=== PATIENT | female | born 1960 | race Caucasian/White ===

== ENCOUNTER 2020-07-31 08:43 | Inpatient (IN) | payer MEDICAID, SELFPAY ==
[2020-07-31 08:44] VITALS: BP 147/76; PULSE 93; RESP 16; TEMP 36.7; O2SAT 98; BMI 14.6
--- NOTE | 2020-07-31 08:59 | EKG12_ITS ---
Test Reason : DETOX Blood Pressure : / mmHG Vent. Rate : 076 BPM Atrial Rate : 076 BPM P-R Int : 160 ms QRS Dur : 074 ms QT Int : 382 ms P-R-T Axes : 084 061 075 degrees QTc Int : 429 ms Normal sinus rhythm Possible Left atrial enlargement Septal infarct , age undetermined Abnormal ECG Confirmed by INDRA ATKINS, JEFFERSON ([id number]), non linear editor VICKY LINTON ([id number]) on 08/06/2020 12:44:39 PM Referred By: KANWAL Confirmed By:JEFFERSON BURRELL MD
--- NOTE | 2020-07-31 09:02 | ED.DCSUM_ITS ---
History of Present Illness Chief Complaint: Substance Abuse Informant: Patient Onset: Month(s) Current Severity: Moderate Maximum Severity: Moderate Narrative: Patient is a 59-year-old female who presents to the emergency department requesting detox. Patient has a long history of alcohol abuse. She states that for years, she will just drink beer. However over the past 2 years, she started to drink vodka with it. She states she goes through about 1/5 of vodka every 2 days. She states that she has begun to have financial and social issues because of her drinking and feels like it is time for her to get clean. She has done outpatient therapy before and has stayed sober for 2 months. She states that she has been shaky and nauseated. She states that her last drink was about 48 hours ago. Patient does have history of spinal stenosis, hypertension, and smoking. Prior similar symptoms: No Recent Illness/Hospitalization: No Past Medical History - Allergies and Home Meds Allergies/Adverse Reactions: Allergies codeine Adverse Reaction (Verified 07/31/20 08:47) Nausea PLASTIC TAPE Allergy (Uncoded 07/31/20 08:47) Rash Primary Care Physician: Montana Norwood MD [NON-STAFF] - Prior records reviewed: Yes Past Medical History: - - Alcohol abuse, hypertension, spinal stenosis Surgical History: noncontributory Lives: With Family Smoking Status: Current every day smoker Alcohol: Heavy Review of Systems General: Denies: Chills, Fever, Sweats Eyes: Denies: Visual changes - bilaterally, Diplopia ENT: Denies: Rhinorrhea, Sore throat Cardiovascular: Denies: Chest pain, Palpitations Respiratory: Denies: Dyspnea, Cough, Dyspnea on exertion Gastrointestinal: Reports: Nausea. Denies: Abdominal pain, Vomiting, Diarrhea, Melena, Hematochezia Genitourinary: Denies: Dysuria, Hematuria, Frequency Musculoskeletal: Denies: Back pain, Extremity Pain Skin: Denies: Rash, Wounds Neurological: Denies: Headache, Weakness, Numbness Psych: Reports: Anxiety Physical Exam Vital Signs/Narrative: Vital Signs Temp Pulse Resp BP Pulse Ox 07/31/20 08:44 98.1 F 93 16 147/76 H 98 Inital Vital Signs reviewed: Yes General: Well nourished, Well developed, No Acute Distress Head: Normocephalic, Atraumatic Eyes: Perrl, EOMI ENT: Moist mucous membranes, No rhinorrhea Neck: Supple, Nontender Cardiovascular: Regular rate, Regular rhythm, No murmurs Respiratory: No distress, CTA bilaterally, Chest nontender Abdomen: Soft, Nontender, Nondistended, Normal bowel sounds Back: Nontender, Normal Inspection Extremities: Nontender, No edema Skin: Normal color, No rash Neurological: Alert, Oriented x3, Cranial nerves II-XII grossly intact, Normal Strength, Normal Sensation Psychological: Normal affect, Normal Mood Diagnostic/Tx/Re-eval Abnormal Lab Results 07/31/20 07/31/20 09:13 09:13 WBC 8.1 RBC 3.43 L Hgb 11.0 L Hct 33.2 L MCV 96.8 MCH 32.1 H MCHC 33.1 RDW Std Deviation 47.1 H RDW Coeff of Marcia 13.2 Plt Count 194 MPV 9.0 Immature Gran % (Auto) 0.200 Neut % (Auto) 72.5 H Lymph % (Auto) 16.6 L [place] % (Auto) 8.2 Eos % (Auto) 1.9 Baso % (Auto) 0.6 Absolute Neuts (auto) 5.8 Absolute Lymphs (auto) 1.34 Nucleated RBC % 0 Sodium 127 L Potassium 3.3 L Chloride 90 L Carbon Dioxide 29.0 Anion Gap 8 BUN 4 L Creatinine 0.83 Estim Creat Clear Calc 48.41 Est GFR (MDRD) Af Amer 91 Est GFR (MDRD) Non-Af 76 BUN/Creatinine Ratio 4.8 L Glucose 98 Calcium 8.9 Total Bilirubin 0.50 AST 31 ALT 14 Alkaline Phosphatase 64 Total Protein 7.1 Albumin 3.9 Globulin 3.2 Albumin/Globulin Ratio 1.2 - Rhythm Strip Rhythm Strip: Sinus Rhythm Rate: 80 Ectopy: None - EKG Initial EKG Interpretation: Sinus Rhythm, No Acute Injury Pattern Prior: Unchanged - Medical Decision Making Patient presents requesting detox from alcohol. Her last drink was 48 hours ago. She is tremulous but not tachycardic. Metabolic work-up was pursued. EKG was sinus rhythm without ischemia. She is found to be mildly hypokalemic and hyponatremic. Her potassium was replaced. Patient was discussed with the hospitalist and will be admitted for her alcohol dependence. Impression 1. Alcohol dependence ED Disposition - Plan for ED Patient: Referrals: Montana Norwood MD [NON-STAFF] -
[2020-07-31] MEDS: LORazepam 2 MG/ML Syringe 1 MG IV (09:23)
[2020-07-31 09:24] LABS: Absolute Lymphocyte Count 1.34 X10^3/uL (0.83-4.51); Absolute Neutrophil Count 5.8 X10^3/uL (2.0-7.7); Basophil# 0.05 X10^3/uL; Basophil% 0.6 % (0-1); Eosinophil# 0.15 X10^3/uL; Eosinophils% 1.9 % (0-5); Hematocrit 33.2 % (37-47); Lymphocyte # 1.34 X10^3/ul (4.0); Lymphocyte % 16.6 % (19-41); Mean Corp Hgb Conc 33.1 g/dL (32-36); Mean Corpuscular Hgb 32.1 pg (27.0-32.0); Mean Corpuscular Volume 96.8 fL (81-99); Monocyte# 0.66 X10^3/uL; Monocyte% 8.2 % (0-10); NRBC Flagged by Analyzer 0 % (0-5); Neutrophil # 5.83 X10^3/uL (2.7-7.7); Neutrophil % 72.5 % (47-70); Platelet Count 194 K/mm3 (150-450); RBC Distribution Width CV 13.2 % (11.6-14.6); RBC Distribution Width SD 47.1 fl (35.1-43.9); Red Blood Count 3.43 M/mm3 (4.2-5.4); White Blood Count 8.1 K/mm3 (4.4-11.0)
[2020-07-31 09:42] LABS: ALB/GLOB Ratio 1.2 RATIO (0.9-2.4); AST(SGOT) 31 U/L (15-37); Alanine Aminotransfer ALT/SGPT 14 U/L (13-56); Albumin, Serum 3.9 g/dL (3.2-5.0); Alkaline Phosphatase 64 U/L (45-117); Anion Gap 8 (5-15); BUN 4 mg/dL (7-18); BUN/Creat Ratio 4.8 RATIO (10-20); Calcium,Total 8.9 mg/dL (8.5-10.1); Chloride 90 mmol/L (98-107); Creatinine, Serum 0.83 mg/dL (0.55-1.02); EST Glomerular Filtration Rate 76 mL/min (>60); Est Glom Filt Rate - Afr Amer 91 mL/min (>60); Estimated Creatinine Clearance 48.41 ml/min; Globulin 3.2 g/dL (2.2-4.2); Glucose 98 mg/dL (74-106); Potassium 3.3 mmol/L (3.5-5.1); Protein, Total 7.1 g/dL (6.4-8.2); Sodium Level 127 mmol/L (136-145)
[2020-07-31 10:03] LABS: Alcohol, Blood (Medical)-Serum < 3.0 mg/dL
[2020-07-31 10:06] VITALS: BP 140/82; BP 148/68; BP 148/72; PULSE 90; RESP 16; TEMP 36.6; O2SAT 98
--- NOTE | 2020-07-31 10:10 | CM.ED ---
SOCIAL WORK Reason for Consult: Substance Abuse- patient requesting detox from ETOH Met with patient in room. Introduced role and reason for referral. Patient states has been battling alcohol addiction for many years. Patient states, I need to stop. Patient reports good support from boyfriend and son. Patient states has already been in contact with [facility]. Patient states last drink was Thursday. Patient reports drinks a 5th of vodka in 3 days. Patient states believes would benefit from inpatient/residential treatment at discharge as outpatient has not worked in the past. Much emotional support and encouragement provided. Call to [facility] Treatment NavigatorAmira- updated on patient's admission to [facility]. Plan: Admit to [facility] Devon Melendez, IT SENIOR SOFTWARE ENGINEER JAVA, ESE TEACHER
[2020-07-31 10:12] LABS: Mucous, Urine 0 SEEN /hpf (<or=2+); Red Blood Cells-Urine 0 SEEN /hpf (0-5)
[2020-07-31 10:14] LABS: Color, Urine Yellow (Yellow); Glucose, Dipstick Normal (Normal); Ketone-Dipstick Negative (Negative); Leukocyte Esterase-Dipstick 500 /ul (Negative); Nitrite-Dipstick Negative (Negative); Occult Blood-Urine Negative /ul (Negative); Protein-Dipstick Negative (Negative); Urine Bilirubin Dipstick Negative (Negative); Urine Clarity Clear (Clear); Urine Urobilinogen Normal (Normal)
[2020-07-31 10:22] LABS: Amphetamine Urine VISTA NEGATIVE (<1000 ng/mL); Barbiturate Urine VISTA NEGATIVE (< 200 ng/mL); Benzodiazepine Urine VISTA NEGATIVE (< 200 ng/mL); Cocaine Urine VISTA NEGATIVE (< 300 ng/mL); Ecstacy Urine VISTA NEGATIVE (< 500 ng/mL); Methadone Urine VISTA NEGATIVE (< 300 ng/mL); PCP Urine VISTA NEGATIVE (< 25 ng/mL); THC Urine VISTA NEGATIVE (< 50 ng/mL); Vista UDS pH Range 7
[2020-07-31 10:26] LABS: Squamous Epithelial Cells - UA 0-5 SEEN /hpf (5-10); White Blood Cells 5-10 SEEN /hpf (0-5)
[2020-07-31 10:27] LABS: Bacteria RARE /hpf (None Seen)
[2020-07-31 12:52] VITALS: BMI 14.7
[2020-07-31 13:01] VITALS: BMI 14.7
[2020-07-31 13:11] VITALS: BP 143/74; PULSE 77; RESP 16; TEMP 36.7; O2SAT 97
[2020-07-31 13:21] LABS: Magnesium 1.2 mg/dL (1.6-2.6)
[2020-07-31] MEDS: Phenobarbital 32.4 MG Tablet 64.8 MG PO ×3 (14:26→20:05)
[2020-07-31] MEDS: 0.9% Saline Lock 10 ML Syringe IV (15:13)
[2020-07-31] MEDS: Potassium Chloride 40 MEQ in 0.9% Normal Saline 1,000 ML 150 MEQ IV (15:13)
--- NOTE | 2020-07-31 15:36 | NT.THERAPY_ITS ---
Nutrition Therapy Report - History Nutrition Services has been consulted to:: Manage nutrient details of diet order Current diet / nutrition support order:: regular - Anthropometric Measurements Height:: 5 ft 6 in Weight:: 41.4 kg Body Mass Index (BMI):: 14.7 - Relevant Labs Relevant Labs:: RBC 3.43 M/mm3 (4.2-5.4) L 07/31/20 09:13 Hgb 11.0 g/dL (12.0-15.0) L 07/31/20 09:13 Hct 33.2 % (37-47) L 07/31/20 09:13 MCH 32.1 pg (27.0-32.0) H 07/31/20 09:13 RDW Std Deviation 47.1 fl (35.1-43.9) H 07/31/20 09:13 Neut % (Auto) 72.5 % (47-70) H 07/31/20 09:13 Lymph % (Auto) 16.6 % (19-41) L 07/31/20 09:13 Sodium 127 mmol/L (136-145) L 07/31/20 09:13 Potassium 3.3 mmol/L (3.5-5.1) L 07/31/20 09:13 Chloride 90 mmol/L (98-107) L 07/31/20 09:13 BUN 4 mg/dL (7-18) L 07/31/20 09:13 BUN/Creatinine Ratio 4.8 RATIO (10-20) L 07/31/20 09:13 Magnesium 1.2 mg/dL (1.6-2.6) L 07/31/20 09:13 - Assessment Food / Nutrition-Related History:: Pt describes PO intake CUSTOMER ENGAGEMENT SPECIALIST as poor- not usually a breakfast eater, would have a small snack in afternoon and not eat much at dinner time. States wt 1 year ago was 110# and has been as low as 88# recently (22#/20% wt loss x 1 year, significant for malnutrition). Denies issues chewing/swallowing. Reports interest in gaining wt. - Nutrition Diagnosis Problem / Etiology / Signs & Symptoms (PES):: Pt w/ moderate malnutrition in context of social/behavioral circumstances r/t alcohol abuse as evidenced by reported wt loss of 20% x 1 year, estimated PO intake meeting less than 75% of estimated nutritional needs >3 months. Evidence of Malnutrition Exists:: Yes Moderate PCM:: Social & Environmental circumstances - Nutrition Intervention Nutrition Prescription:: For wt gain: [id number] calories, 50-60 g protein/day - Food / Nutrient Delivery Interventions Summary of nutrition intervention:: Discussed regular diet order. Pt agreeable to trying ensure enlive w/ medpass. No questions for RDN at this time. Nutrition support ordered as / adjusted to:: regular diet; 120mL ensure enlive 4x/day Nutrition education provided?: Yes - MNT Monitoring Further MNT monitoring and evaluation required?: Yes MNT Follow-up in:: 3-5 days
[2020-07-31 15:38] VITALS: BMI 14.7
--- NOTE | 2020-07-31 16:33 | HP.PCM_ITS ---
Problem List (1) Alcohol withdrawal Status: Acute Qualifiers: Complication of substance-induced condition: uncomplicated Qualified Code(s): F10.230 - Alcohol dependence with withdrawal, uncomplicated History of Present Illness Date of Admission: 07/31/20 Chief Complaint: seeking treatment for alcohol withdrawal. The patient is a 59 year old F presents to [facility] seeking treatment for alcohol. Patient drinks 1/5 of vodka per day. Patient's last drink was 3 days ago and since then has been experiencing some minor tremors, headache and nausea. Patient was brought in at the insistence of her family the patient does want to quit alcohol. Patient said that she had quit back in May on her own and was sober for period of time but resumed drinking again. Patient has not followed up with in the formal program previously though has had a [facility], where she was mandated to seek treatment but stopped doing so once that mandate had lapsed. [] Past Medical History Medical History: Medical History (Last Updated 07/31/20 @ 16:[address] Robinson Blank, DO) COPD (chronic obstructive pulmonary disease) J44.9 HTN (hypertension) I10 Allergies codeine Adverse Reaction (Verified 07/31/20 08:47) Nausea PLASTIC TAPE Allergy (Uncoded 07/31/20 08:47) Rash Home Medications: Ambulatory Orders Medication Instructions Recorded Amlodipine [Norvasc] 5 mg PO DAILY 07/31/20 Folic Acid 1 mg PO DAILY 07/31/20 Gabapentin [Neurontin] 100 mg PO TID 07/31/20 Metoprolol Succinate [Toprol Xl] 50 mg PO DAILY 07/31/20 Thiamine HCl [B-1] 100 mg PO 07/31/20 Tizanidine HCl [Zanaflex] 4 mg PO PRN PRN 07/31/20 Surgical History: noncontributory Lives: With Family Smoking Status: Heavy Smoker (>10/day) Tobacco Use: Cigarettes Alcohol: Heavy Drugs: None - *Family History Maternal History Items: No pertinent history Review of Systems Constitutional: Denies: Anorexia, Night Sweats Eyes: Denies: Blurred vision, Double vision HEENT: Denies: Head Aches, Sinus Congestion, Sinus Drainage Cardiovascular: Denies: Chest Pain, Palpitations Respiratory: Denies: Cough, Shortness of breath at rest, Sputum production Gastrointestinal: Denies: Abdominal Pain, Nausea, Vomiting Genitourinary: Denies: Dysuria Musculoskeletal: Denies: Joint Pain, Joint Tenderness Skin: Denies: Rash, Wounds Neurological: Denies: Numbness, Tingling, Focal weakness Psychiatric: Denies: Anxiety, Depression Hematologic/ Lymphatic: Denies: Easy Bruising, Easy Bleeding, Hx of blood clot Comment: All review of systems were negative except as mentioned above in the history of present illness and the other review of systems. VTE Information - Inpt Only VTE Present on Admission: No VTE Mechan Device Prophylaxis: None VTE Pharm Prophylaxis ordered?: No Reason prophylaxis not ordered:: Treatment Not Indicated - Physical Exam Vitals/I&O's: Vital Signs Temp Pulse Resp BP Pulse Ox 36.7 C 77 16 143/74 H 97 07/31/20 13:11 07/31/20 13:11 07/31/20 13:11 07/31/20 13:11 07/31/20 13:11 Oxygen Delivery Method Room Air Weight: 41.4 kg Body Mass Index (BMI) 14.7 General: Alert, Cooperative, No apparent distress HEENT: Atraumatic, Normocephalic Oral: Moist Mucosa, No Gingival or Mucosal Lesions/ Ulcerations Neck: No Nodes, Thyroid Normal Size and Texture Lungs: Clear to auscultation, Normal air movement, No rhonchi, No wheeze Cardiovascular: Regular rate, Regular Rhythm, Normal S1, Normal S2, No murmurs Abdomen: Bowel Sounds Present, Soft, Non Tender, Non-Distended, No Hepato- splenomegaly Extremities: No edema, No Calf Tenderness Skin: No rashes, No breakdown Psych/Mental Status: Normal Affect, Appropriate Laboratory Results 07/31/20 09:13: WBC 8.1, RBC 3.43 L, Hgb 11.0 L, Hct 33.2 L, MCV 96.8, MCH 32.1 H, MCHC 33.1, RDW Std Deviation 47.1 H, RDW Coeff of Amrcia 13.2, Plt Count 194, MPV 9.0, Immature Gran % (Auto) 0.200, Neut % (Auto) 72.5 H, Lymph % (Auto) 16.6 L, [place] % (Auto) 8.2, Eos % (Auto) 1.9, Baso % (Auto) 0.6, Absolute Neuts (a uto) 5.8, Absolute Lymphs (auto) 1.34, Nucleated RBC % 0 07/31/20 09:13: Sodium 127 L, Potassium 3.3 L, Chloride 90 L, Carbon Dioxide 29.0, Anion Gap 8, BUN 4 L, Creatinine 0.83, Estim Creat Clear Calc 48.41, Est GFR (MDRD) Af Amer 91, Est GFR (MDRD) Non-Af 76, BUN/Creatinine Ratio 4.8 L, Glucose 98, Calcium 8.9, Total Bilirubin 0.50, AST 31, ALT 14, Alkaline Phosphatase 64, Total Protein 7.1, Albumin 3.9, Globulin 3.2, Albumin/Globulin Ratio 1.2 07/31/20 09:13: Ethyl Alcohol < 3.0 07/31/20 09:13: Magnesium 1.2 L 07/31/20 10:00: Urine Color Yellow, Urine Clarity Clear, Urine pH 8.0, Ur Specific Plain 1.010, Urine Protein Negative, Urine Glucose (UA) Normal, Urine Ketones Negative, Urine Occult Blood Negative, Urine Nitrite Negative, Urine Bilirubin Negative, Urine Urobilinogen Normal, Ur Leukocyte Esterase 500 H, Urine RBC 0 SEEN, Urine WBC 5-10 SEEN, Ur Squamous Epith Cells 0-5 SEEN, Urine Bacteria RARE, Urine Mucus 0 SEEN 07/31/20 10:00: Urine Opiates Screen NEGATIVE, Urine Methadone Screen NEGATIVE, Ur Barbiturates Screen NEGATIVE, Ur Phencyclidine Scrn NEGATIVE, Ur Amphetamines Screen NEGATIVE, U Methamphetamin-MDMA NEGATIVE, U Benzodiazepines Scrn NE GATIVE, Urine Cocaine Screen NEGATIVE, U Cannabinoids Screen NEGATIVE, Ur Drug Screen Comment Current Medications Acetaminophen (Acetaminophen 500 Mg Tablet) 500 mg PO Q4H PRN PRN PRN Reason: Temp > 100.4 F Amlodipine Besylate (Amlodipine 5 Mg Tablet) 5 mg PO DAILY [facility] Dicyclomine HCl (Dicyclomine 10 Mg Capsule) 20 mg PO Q6H PRN PRN PRN Reason: abdominal discomfort Folic Acid (Folic Acid 1 Mg Tablet) 1 mg PO DAILYCM [facility] Gabapentin (Gabapentin 100 Mg Capsule) 100 mg PO TIDCM [facility] Hydroxyzine Pamoate (Hydroxyzine Soyf 25 Mg Capsule) 50 mg PO Q4H PRN PRN PRN Reason: mild anxiety Potassium Chloride 40 meq/ (Sodium Chloride) 1,020 mls @ 150 mls/hr IV .[id number] [facility] Stop: 07/31/20 19:35 Last Admin: 07/31/20 15:13 Dose: 150 mls/hr Documented by: Ibuprofen (Ibuprofen 600 Mg Tablet) 600 mg PO Q8H PRN PRN PRN Reason: Pain Score 1-10 Loperamide HCl (Loperamide 2 Mg Capsule) 2 mg PO Q4H PRN PRN PRN Reason: LOOSE STOOLS Metoprolol Succinate (Metoprolol(Xl)Succ 50 Mg Tablet) 50 mg PO DAILY [facility] Nicotine (Nicotine 21 Mg Patch) 21 mg TD DAILY [facility] Last Admin: 07/31/20 15:13 Dose: 21 mg Documented by: Nutritional Formula (Lactose Free) (Ensure Enlive 120 Ml Liquid) 120 ml PO 4X/DAY [facility] Ondansetron HCl (Ondansetron 8 Mg Tablet) 8 mg PO Q8H PRN PRN PRN Reason: NAUSEA Phenobarbital (Phenobarbital 32.4 Mg Tablet) 97.2 mg PO Q4H [facility]; Taper Stop: 08/04/20 20:59 Last Admin: 07/31/20 14:26 Dose: 97.2 mg Documented by: Sodium Chloride (0.9% Saline Lock 10 Ml Syringe) 10 - 40 ml IV UD PRN PRN Reason: SALINE FLUSH Last Admin: 07/31/20 15:13 Dose: 10 ml Documented by: Thiamine HCl (Thiamine Hydrochloride 100 Mg Tablet) 100 mg PO DAILYCM [facility] Tizanidine HCl (Tizanidine Hcl 2 Mg Tablet) 4 mg PO Q8H PRN PRN Reason: SPASMS Trazodone HCl (Trazodone 100 Mg Tablet) 100 mg PO QHS PRN PRN Reason: INSOMNIA Assessment/Plan All Active Problems Alcohol withdrawal (Acute) 1. Acute alcohol withdrawal: Patient last drink was roughly 72 hours ago and seems to be doing okay at this time. Plan is to continue with phenobarbital taper, add thiamine and folate. Addiction medicine to assist with program upon outpatient. Patient currently expressing desire to follow-up with programs to maintain sobriety. Encouraged patient to take an active role in regards to her addiction and treatment moving forward. 2. Hypertension: Stable. Continue with amlodipine 3. VTE prophylaxis: Not indicated. Ambulation. 4. Tobacco abuse: Nicotine patch. Inpatient E&M: 64874 Init Hosp L2
[2020-07-31 17:37] VITALS: BP 135/81; PULSE 82; RESP 18; TEMP 37.2; O2SAT 97
[2020-07-31] MEDS: Gabapentin 100 MG Capsule PO (17:39)
[2020-07-31 20:20] VITALS: BP 123/73; PULSE 96; RESP 16; TEMP 37; O2SAT 96
[2020-08-01] VITALS (8 sets, daily range): BP systolic 132–147; BP diastolic 72–97; PULSE 78–109; RESP 12–18; TEMP 36.3–36.9; O2SAT 97–99
[2020-08-01] MEDS: Phenobarbital 32.4 MG Tablet 64.8 MG PO ×6 (01:03→21:39)
[2020-08-01] MEDS: amLODIPine 5 MG Tablet PO (08:05)
[2020-08-01] MEDS: Gabapentin 100 MG Capsule PO ×3 (08:05→16:31)
[2020-08-01] MEDS: Metoprolol(XL)Succ 50 MG Tablet PO (08:05)
[2020-08-01] MEDS: Folic Acid 1 MG Tablet PO (08:05)
[2020-08-01] MEDS: Thiamine Hydrochloride 100 MG Tablet PO (08:05)
[2020-08-01] MEDS: 0.9% Saline Lock 10 ML Syringe IV ×2 (08:10→21:40)
[2020-08-01] MEDS: Magnesium Sulfate 4gm/100mL 4 GM/100 ML IV.SOLN. IV (08:15)
--- NOTE | 2020-08-01 08:28 | PN_ITS ---
Patient Problems: Active and Suspected Problems (Last Updated 07/31/20 @ 16:[address] Robinson Blank, DO) Alcohol withdrawal (Acute) Reason for Visit: alcohol withdrawal Subjective: Feels better. Tolerating PO. No tremors, headaches. Vitals/I&O's: Vital Signs Temp Pulse Resp BP Pulse Ox 36.6 C 104 H 16 139/97 H 98 08/01/20 08:01 08/01/20 08:05 08/01/20 08:01 08/01/20 08:01 08/01/20 08:01 Oxygen Delivery Method Room Air Weight: 41.4 kg Body Mass Index (BMI) 14.7 Intake and Output for Last 24 Hours 07/30/20 07/31/20 08/01/20 23:59 23:59 23:59 Intake Total 1220 / 1220 Balance 1220 / 1220 General: Alert, No apparent distress HEENT: Atraumatic, Normocephalic Oral: Moist Mucosa, No Gingival or Mucosal Lesions/ Ulcerations Neck: No Nodes, Thyroid Normal Size and Texture Lungs: Clear to auscultation, Normal air movement, No rhonchi, No wheeze, No rales Cardiovascular: Regular rate, Regular Rhythm, Normal S1, Normal S2, No murmurs Abdomen: Bowel Sounds Present, Soft, Non Tender, Non-Distended, No Hepato- splenomegaly Extremities: No edema, No Calf Tenderness Psych/Mental Status: Normal Affect, Appropriate Laboratory Results 07/31/20 09:13: WBC 8.1, RBC 3.43 L, Hgb 11.0 L, Hct 33.2 L, MCV 96.8, MCH 32.1 H, MCHC 33.1, RDW Std Deviation 47.1 H, RDW Coeff of Marcia 13.2, Plt Count 194, MPV 9.0, Immature Gran % (Auto) 0.200, Neut % (Auto) 72.5 H, Lymph % (Auto) 16.6 L, [place] % (Auto) 8.2, Eos % (Auto) 1.9, Baso % (Auto) 0.6, Absolute Neuts (auto) 5.8, Absolute Lymphs (auto) 1.34, Nucleated RBC % 0 07/31/20 09:13: Sodium 127 L, Potassium 3.3 L, Chloride 90 L, Carbon Dioxide 29.0, Anion Gap 8, BUN 4 L, Creatinine 0.83, Estim Creat Clear Calc 48.41, Est GFR (MDRD) Af Amer 91, Est GFR (MDRD) Non-Af 76, BUN/Creatinine Ratio 4.8 L, Glucose 98, Calcium 8.9, Total Bilirubin 0.50, AST 31, ALT 14, Alkaline Phosphatase 64, Total Protein 7.1, Albumin 3.9, Globulin 3.2, Albumin/Globulin Ratio 1.2 07/31/20 09:13: Ethyl Alcohol < 3.0 07/31/20 09:13: Magnesium 1.2 L 07/31/20 10:00: Urine Color Yellow, Urine Clarity Clear, Urine pH 8.0, Ur Specific [place] 1.010, Urine Protein Negative, Urine Glucose (UA) Normal, Urine Ketones Negative, Urine Occult Blood Negative, Urine Nitrite Negative, Urine Bilirubin Negative, Urine Urobilinogen Normal, Ur Leukocyte Esterase 500 H, Urine RBC 0 SEEN, Urine WBC 5-10 SEEN, Ur Squamous Epith Cells 0-5 SEEN, Urine Bacteria RARE, Urine Mucus 0 SEEN 07/31/20 10:00: Urine Opiates Screen NEGATIVE, Urine Methadone Screen NEGATIVE, Ur Barbiturates Screen NEGATIVE, Ur Phencyclidine Scrn NEGATIVE, Ur Amphetamines Screen NEGATIVE, U Methamphetamin-MDMA NEGATIVE, U Benzodiazepines Scrn NEGATIVE, Urine Cocaine Screen NEGATIVE, U Cannabinoids Screen NEGATIVE, Ur Drug Screen Comment Current Medications Acetaminophen (Acetaminophen 500 Mg Tablet) 500 mg PO Q4H PRN PRN PRN Reason: Temp > 100.4 F Amlodipine Besylate (Amlodipine 5 Mg Tablet) 5 mg PO DAILY [facility] Last Admin: 08/01/20 08:05 Dose: 5 mg Documented by: Dicyclomine HCl (Dicyclomine 10 Mg Capsule) 20 mg PO Q6H PRN PRN PRN Reason: abdominal discomfort Folic Acid (Folic Acid 1 Mg Tablet) 1 mg PO DAILYCM [facility] Last Admin: 08/01/20 08:05 Dose: 1 mg Documented by: Gabapentin (Gabapentin 100 Mg Capsule) 100 mg PO TIDCM [facility] Last Admin: 08/01/20 08:05 Dose: 100 mg Documented by: Hydroxyzine Pamoate (Hydroxyzine Sofy 25 Mg Capsule) 50 mg PO Q4H PRN PRN PRN Reason: mild anxiety Magnesium Sulfate () 4 gm in 100 mls @ 25 mls/hr IV X1 ONE Stop: 08/01/20 11:44 Last Admin: 08/01/20 08:15 Dose: 25 mls/hr Documented by: Sodium Chloride () 250 mls @ 15 mls/hr IV .[id number] PRN PRN Reason: Saline Flush Ibuprofen (Ibuprofen 600 Mg Tablet) 600 mg PO Q8H PRN PRN PRN Reason: Pain Score 1-10 Loperamide HCl (Loperamide 2 Mg Capsule) 2 mg PO Q4H PRN PRN PRN Reason: LOOSE STOOLS Metoprolol Succinate (Metoprolol(Xl)Succ 50 Mg Tablet) 50 mg PO DAILY [facility] Last Admin: 08/01/20 08:05 Dose: 50 mg Documented by: Nicotine (Nicotine 21 Mg Patch) 21 mg TD DAILY [facility] Last Admin: 08/01/20 08:05 Dose: 21 mg Documented by: Nutritional Formula (Lactose Free) (Ensure Enlive 120 Ml Liquid) 120 ml PO 4X/DAY [facility] Last Admin: 07/31/20 20:05 Dose: Not Given Documented by: Ondansetron HCl (Ondansetron 8 Mg Tablet) 8 mg PO Q8H PRN PRN PRN Reason: NAUSEA Phenobarbital (Phenobarbital 32.4 Mg Tablet) 97.2 mg PO Q4H [facility]; Taper Stop: 08/04/20 20:59 Last Admin: 08/01/20 08:09 Dose: 97.2 mg Documented by: Sodium Chloride (0.9% Saline Lock 10 Ml Syringe) 10 - 40 ml IV UD PRN PRN Reason: SALINE FLUSH Last Admin: 08/01/20 08:10 Dose: 10 ml Documented by: Thiamine HCl ([facility]ide 100 Mg [facility]t) [facility] Last Admin: 08/01/20 08:05 Dose: 100 mg Documented by: Tizanidine HCl (Tizanidine Hcl 2 Mg Tablet) 4 mg PO Q8H PRN PRN Reason: SPASMS Trazodone HCl (Trazodone 100 Mg Tablet) 100 mg PO QHS PRN PRN Reason: INSOMNIA STROKE Vital Signs/Narrative: Vital Signs Temp Pulse Resp BP Pulse Ox 08/01/20 08:05 104 H 08/01/20 08:01 36.6 C 104 H 16 139/97 H 98 08/01/20 07:58 36.6 C 104 H 16 139/97 H 98 Medical Necessity - Tobacco Use Smoking Status: Heavy Smoker (>10/day) Tobacco Use: Cigarettes Assessment/Plan All Active Problems (Last Updated 07/31/20 @ 16:[address] Robinson Blank, DO) Alcohol withdrawal (Acute) 1. Acute alcohol withdrawal: Patient last drink was roughly 72 hours prior to admission and seems to be doing okay at this time. Plan is to continue with phenobarbital taper, add thiamine and folate. Addiction medicine to assist with program upon outpatient. Patient currently expressing desire to follow-up with programs to maintain sobriety. Encouraged patient to take an active role in regards to her addiction and treatment moving forward. 2. Hyponatremia: likely 2/2 alcohol consumption. Recheck labs 3. Hypokalemia: likley d/t malnutrition. recheck and replace PRN. 4. Hypomagnesemia: d/t malnutrition. replace and recheck. 5. Malnutrition: albumin normal. consult dietary on recommendations. 6. Hypertension: Stable. Continue with amlodipine 7. VTE prophylaxis: Not indicated. Ambulation. 8. Tobacco abuse: Nicotine patch. Inpatient E&M: [id number] Subs Hosp L2
[2020-08-01 09:12] LABS: Anion Gap 6 (5-15); BUN 5 mg/dL (7-18); BUN/Creat Ratio 6.6 RATIO (10-20); Calcium,Total 9.1 mg/dL (8.5-10.1); Chloride 95 mmol/L (98-107); Creatinine, Serum 0.76 mg/dL (0.55-1.02); EST Glomerular Filtration Rate 84 mL/min (>60); Est Glom Filt Rate - Afr Amer 101 mL/min (>60); Estimated Creatinine Clearance 53.38 ml/min; Glucose 107 mg/dL (74-106); Potassium 3.9 mmol/L (3.5-5.1); Sodium Level 128 mmol/L (136-145)
--- NOTE | 2020-08-01 09:53 | ADDICTION ---
This sql report writer met with PT in her room to complete ASAM, MSE, AUDIT assessments and to begin planning for discharge. PT A/Ox4 and participated appropriately. She reported no withdrawal symptoms. All documentation completed, faxed to [facility] and placed in PT chart. [facility] updated on plan. PT has appointment scheduled for [facility] on 08/08/20 for assessment and follow-up treatment. She is also interested in pursuing mental health treatment with her counselor (in [facility]), Moriah. She will d/c to home and did not request transportation assistance.
[2020-08-02] MEDS: Phenobarbital 32.4 MG Tablet 64.8 MG PO ×3 (01:45→09:11)
[2020-08-02 01:55] VITALS: BP 148/78; PULSE 77; RESP 16; TEMP 36.4; O2SAT 99
[2020-08-02 07:24] LABS: Anion Gap 5 (5-15); BUN 11 mg/dL (7-18); BUN/Creat Ratio 16.4 RATIO (10-20); Calcium,Total 8.7 mg/dL (8.5-10.1); Chloride 98 mmol/L (98-107); Creatinine, Serum 0.67 mg/dL (0.55-1.02); EST Glomerular Filtration Rate 96 mL/min (>60); Est Glom Filt Rate - Afr Amer 116 mL/min (>60); Estimated Creatinine Clearance 60.55 ml/min; Glucose 89 mg/dL (74-106); Magnesium 1.8 mg/dL (1.6-2.6); Potassium 3.9 mmol/L (3.5-5.1); Sodium Level 129 mmol/L (136-145)
[2020-08-02] MEDS: Thiamine Hydrochloride 100 MG Tablet PO (07:52)
[2020-08-02] MEDS: Gabapentin 100 MG Capsule PO (07:52)
[2020-08-02] MEDS: Folic Acid 1 MG Tablet PO (07:52)
[2020-08-02 08:00] VITALS: BP 128/90; PULSE 119; RESP 16; TEMP 37.2; O2SAT 98
[2020-08-02 09:00] VITALS: BP 128/90; PULSE 114; RESP 18; TEMP 36.7; O2SAT 97
[2020-08-02 09:14] VITALS: PULSE 119
[2020-08-02] MEDS: Metoprolol(XL)Succ 50 MG Tablet PO (09:14)
[2020-08-02] MEDS: amLODIPine 5 MG Tablet PO (09:15)
--- NOTE | 2020-08-02 09:15 | ADDICTION ---
This display card writer met with PT in her room to finalize d/c plan. PT to d/c home and plans to follow up with her counselor, Moriah, in [place], [place]. This display card writer offered appt. with [facility] again, PT declined.
--- NOTE | 2020-08-02 09:39 | PCM.DC ---
- Discharge Diagnoses Current Active Problems: Current Active and Chronic Problems (Last Updated 07/31/20 @ 16:[address] Robinson Blank DO) Alcohol withdrawal (Acute) You will use the following diet at home:: No restrictions Your food should be the consistency of: Regular Call your doctor if you observe: Fever of 101 or Higher Allergies/Adverse Reactions: Allergies codeine Adverse Reaction (Verified 07/31/20 08:47) Nausea PLASTIC TAPE Allergy (Uncoded 07/31/20 08:47) Rash Medications to take at Discharge Amlodipine [Norvasc] 5 mg PO DAILY 07/31/20 Folic Acid 1 mg PO DAILY 07/31/20 Gabapentin [Neurontin] 100 mg PO TID 07/31/20 Metoprolol Succinate [Toprol Xl] 50 mg PO DAILY 07/31/20 Thiamine HCl [Vitamin B-1] 100 mg PO 07/31/20 Tizanidine HCl [Zanaflex] 4 mg PO PRN PRN 07/31/20 Primary Care Physician: Montana Norwood MD [NON-STAFF] - Within 2 Weeks Test Results: Test results from this visit will be discussed in further detail at your follow-up appointment, if applicable. Please Follow Up With: [facility] When: 1-2 weeks. Proposed Discharge Date: 08/02/20
--- NOTE | 2020-08-02 09:40 | PCM.DC.SUM ---
Discharge Date and Diagnosis - Problem List Patient Problems: Active and Suspected Problems (Last Updated 07/31/20 @ 16:[address] Robinson Blank DO) Alcohol withdrawal (Acute) Date of Admission: 07/31/20 Date of Discharge: 08/02/20 - Primary Discharge Diagnosis Acute Problems: Active Problems (Last Updated 07/31/20 @ 16:[address] Robinson Blank DO) Alcohol withdrawal (Acute) Hyponatremia Hypokalemia Hypomagnesemia - Secondary Discharge Diagnosis Chronic Problems: moderate malnutrition Hospital Course and Treatment Operations: None Procedures: None Summary of Care Provided: The patient is a 59 year old F presents seeking treatment for alcohol withdrawal. Patient's last consumption of alcohol is a roughly 3 days prior to admission. Patient was having some mild symptoms with regards to some slight tremors. Patient was given an ultimatum by her family regards to seeking treatment. Patient had some electrolyte derangements when she arrived including a low sodium, low potassium and low magnesium. Potassium magnesium replaced and normalized. Sodium is continued to be low but has slightly gone up. This is likely related with patient's alcohol consumption. This may be further followed up as outpatient. Patient is having no symptoms are associated with her hyponatremia. Patient was seen by addiction medicine for her alcoholism. Patient was seen by 180. They did provide the patient an appointment time for the , however, the patient is going to follow-up with her counselor in [place] instead. Patient also need to follow-up with her primary care doctor in regards to getting some basic blood work and following up with her sodium. For the patient is alcohol withdrawal, as mentioned before, her symptoms are rather mild. She was treated with phenobarbital taper. Patient overall has no symptoms at this time and can be safely discharged. [] Patient Problems: Active and Suspected Problems (Last Updated 07/31/20 @ 16:[address] Robinson Blank DO) Alcohol withdrawal (Acute) - Physical Exam Vitals/I&O's: Vital Signs Temp Pulse Resp BP Pulse Ox 36.4 C L 119 H 16 148/78 H 99 08/02/20 01:55 08/02/20 09:14 08/02/20 01:55 08/02/20 01:55 08/02/20 01:55 Oxygen Delivery Method Room Air Weight: 41.4 kg Body Mass Index (BMI) 14.7 Intake and Output for Last 24 Hours 07/31/20 08/01/20 08/02/20 23:59 23:59 23:59 Intake Total 1220 / 1220 600 / 900 300 / 300 Balance 1220 / 1220 600 / 900 300 / 300 General: Alert, No apparent distress HEENT: Atraumatic, Normocephalic Psych/Mental Status: Normal Affect, Appropriate Laboratory Results 08/02/20 06:35: Sodium 129 L, Potassium 3.9, Chloride 98, Carbon Dioxide 26.0, Anion Gap 5, BUN 11, Creatinine 0.67, Estim Creat Clear Calc 60.55, Est GFR (MDRD) Af Amer 116, Est GFR (MDRD) Non-Af 96, BUN/Creatinine Ratio 16.4, Glucose 89, Calcium 8.7, Magnesium 1.8 Current Medications Acetaminophen (Acetaminophen 500 Mg Tablet) 500 mg PO Q4H PRN PRN PRN Reason: Temp > 100.4 F Amlodipine Besylate (Amlodipine 5 Mg Tablet) 5 mg PO DAILY [facility] Last Admin: 08/02/20 09:15 Dose: 5 mg Documented by: Dicyclomine HCl (Dicyclomine 10 Mg Capsule) 20 mg PO Q6H PRN PRN PRN Reason: abdominal discomfort [facility] Last Admin: 08/02/20 07:52 Dose: 1 mg Documented by: Gabapentin (Gabapentin 100 Mg Capsule) 100 mg PO TIDCM [facility] Last Admin: 08/02/20 07:52 Dose: 100 mg Documented by: Hydroxyzine Pamoate (Hydroxyzine Sofy 25 Mg Capsule) 50 mg PO Q4H PRN PRN PRN Reason: mild anxiety Sodium Chloride () 250 mls @ 15 mls/hr IV .[id number] PRN PRN Reason: Saline Flush Ibuprofen (Ibuprofen 600 Mg Tablet) 600 mg PO Q8H PRN PRN PRN Reason: Pain Score 1-10 Loperamide HCl (Loperamide 2 Mg Capsule) 2 mg PO Q4H PRN PRN PRN Reason: LOOSE STOOLS Metoprolol Succinate (Metoprolol(Xl)Succ 50 Mg Tablet) 50 mg PO DAILY [facility] Last Admin: 08/02/20 09:14 Dose: 50 mg Documented by: Nicotine (Nicotine 21 Mg Patch) 21 mg TD DAILY [facility] Last Admin: 08/02/20 09:15 Dose: 21 mg Documented by: Ondansetron HCl (Ondansetron 8 Mg Tablet) 8 mg PO Q8H PRN PRN PRN Reason: NAUSEA Phenobarbital (Phenobarbital 32.4 Mg Tablet) 64.8 mg PO Q4H [facility]; Taper Stop: 08/04/20 20:59 Last Admin: 08/02/20 09:11 Dose: 64.8 mg Documented by: Sodium Chloride (0.9% Saline Lock 10 Ml Syringe) 10 - 40 ml IV UD PRN PRN Reason: SALINE FLUSH Last Admin: 08/01/20 21:40 Dose: 10 ml Documented by: Thiamine HCl (Thiamine Hydrochloride 100 Mg Tablet) [facility] Last Admin: 08/02/20 07:52 Dose: 100 mg Documented by: Tizanidine HCl (Tizanidine Hcl 2 Mg Tablet) 4 mg PO Q8H PRN PRN Reason: SPASMS Trazodone HCl (Trazodone 100 Mg Tablet) 100 mg PO QHS PRN PRN Reason: INSOMNIA Discharge Diet: No Restrictions, - - supplements with meals Call your doctor if you observe: Fever of 101 or Higher Home Medications: Medications to take at Discharge Amlodipine [Norvasc] 5 mg PO DAILY 07/31/20 Folic Acid 1 mg PO DAILY 07/31/20 Gabapentin [Neurontin] 100 mg PO TID 07/31/20 Metoprolol Succinate [Toprol Xl] 50 mg PO DAILY 07/31/20 Thiamine HCl [Vitamin B-1] 100 mg PO 07/31/20 Tizanidine HCl [Zanaflex] 4 mg PO PRN PRN 07/31/20 Primary Care Physician: Montana Norwood MD [NON-STAFF] - Within 2 Weeks Please Follow Up With: Renetta When: 1-2 weeks. Disposition: Home Minutes spent on discharge:: 24 Patient Condition:: Good Medical Necessity - Tobacco Use Smoking Status: Heavy Smoker (>10/day) Tobacco Use: Cigarettes Meaningful Use Info Meaningful Use Diagnoses (Choose all that apply): None applicable Inpatient E&M: [id number] [facility]
--- NOTE | 2020-08-02 10:18 | PHA.DC.MR ---
Pharmacy Service has performed discharge medication reconciliation for this patient. The patient's discharge medication list was reviewed for discrepancies and discrepancies were resolved. Home Medications Amlodipine [Norvasc] 5 mg PO DAILY 07/31/20 Folic Acid 1 mg PO DAILY 07/31/20 Gabapentin [Neurontin] 100 mg PO TID 07/31/20 Metoprolol Succinate [Toprol Xl] 50 mg PO DAILY 07/31/20 Thiamine HCl [Vitamin B-1] 100 mg PO 07/31/20 Tizanidine HCl [Zanaflex] 4 mg PO PRN PRN 07/31/20
[2020-08-02 11:35] VITALS: BP 118/74; PULSE 98; RESP 18; TEMP 36.6; O2SAT 97
== END 2020-08-02 11:44 | disposition home or self-care (01) | DRG 775 ==
LOC: ED 09:09 → MS3 10:18
PROVIDERS: Emergency Provider Emergency Medicine; PCP Nurse Practitioner Family
DX: F10.230 Alcohol dependence with withdrawal, uncomplicated (principal); E87.1 Hypo-osmolality and hyponatremia; E87.6 Hypokalemia; E83.42 Hypomagnesemia; E44.0 Moderate protein-calorie malnutrition; F17.210 Nicotine dependence, cigarettes, uncomplicated; I10 Essential (primary) hypertension; Z68.1 Body mass index [BMI] 19.9 or less, adult; Y90.6 Blood alcohol level of 120-199 mg/100 ml
CPT/HCPCS: 36415; 80048; 80053; 80307; 81001; 82077; 83735; 85025; 93005; 97162; 97166; 97802; 99282; 99406; J7030; A4216